=== PATIENT | female | born 1965 ===

== ENCOUNTER → 2018-01-23 | Outpatient (CLI) | payer SELFPAY ==
--- NOTE | 2018-01-23 17:16 | Diagnostic Imaging Report ---
PATIENT HISTORY: Palpable lump in the right neck for five months. TECHNIQUE: High-resolution grayscale and color Doppler ultrasound was performed of the thyroid. COMPARISON: None. FINDINGS: The right thyroid lobe measures 6.2 x 2.9 x 4.0 cm. There is an isoechoic mass at the superior right thyroid measuring 2.3 x 2.0 x 2.6 cm. There is also an isoechoic mass at the inferior right thyroid with central fluid measuring 3.3 x 2.3 x 3.6 cm. This is the dominant and palpable nodule. These masses demonstrate internal vascularity. Vascularity of the thyroid otherwise appears normal. The isthmus measures 5 mm in thickness. The left thyroid measures 4.6 x 1.2 x 1.6 cm, with an isoechoic circumscribed nodule measuring 1.8 x 1.0 x 1.0 cm, with internal vascularity. The thyroid otherwise appears normal. IMPRESSION: Multiple thyroid nodules, with the large dominant right inferior thyroid nodule corresponding with the palpable abnormality. This measures up to 3.6 cm in size. Recommend tissue sampling. Dictated by: Dictated on workstation # [id number]
== END ==
LOC: RAD 14:17
PROVIDERS: ATTEND Nurse Practitioner Family
DX: E04.2 Nontoxic multinodular goiter (principal)
CPT/HCPCS: 76536

== ENCOUNTER → 2018-01-28 | Outpatient (CLI) | payer OTHER ==
--- NOTE | 2018-01-28 08:49 | Diagnostic Imaging Report ---
INDICATION: Routine screening. COMPARISON: 05/22/2015. TECHNIQUE: 2D and 3D bilateral screening mammography was performed with CAD. FINDINGS: Both breasts are heterogeneously dense, limiting the sensitivity of mammography. There has been development of a slightly lobulated 12 mm density in the upper outer right breast approximately 7 cm from the nipple. Additional views and ultrasound of this area are recommended. No other suspicious density is seen. No malignant appearing microcalcifications are identified. The axillae are unremarkable. IMPRESSION: Right breast nodular density. Additional views and ultrasound are recommended for further evaluation. ACR BI-RADS Category 0: Incomplete. (Needs additional imaging evaluation). Result letter will be mailed to the patient. Note: At least 10% of breast cancer is not imaged by mammography. Dictated by: Dictated on workstation # [id number]
== END ==
LOC: RAD 07:11
PROVIDERS: ATTEND Nurse Practitioner Family
DX: Z12.31 Encounter for screening mammogram for malignant neoplasm of breast (principal); R92.8 Other abnormal and inconclusive findings on diagnostic imaging of breast
CPT/HCPCS: 77067

== ENCOUNTER → 2018-02-16 | Outpatient (CLI) | payer SELFPAY ==
[~2018-02-16] VITALS: Ht 154.9 cm; Wt 68.9 kg
[~2018-02-16] MED LIST: LIDOCAINE 1% INJ 20 ML 20 ML VIAL INJ ONE
--- NOTE | 2018-02-16 13:31 | Diagnostic Imaging Report ---
INDICATION: Right thyroid mass. Patient presents for right thyroid biopsy via ultrasound guidance. TECHNIQUE: The patient was brought to the procedure room and placed on the bed in a supine position. Ultrasound imaging over the right neck was performed to evaluate for an appropriate entry site. The right neck was then prepped and draped in the usual sterile fashion. A small amount of 1% lidocaine was utilized for local anesthesia. A total of three passes was made into the large solid mass in the lower pole of the right lobe of the thyroid with 25-gauge needles. Fine-needle aspiration technique was utilized. Next, a total of two passes was made into the solid mass with a 20-gauge Temno needle and core biopsies were obtained. Hemostasis was obtained using manual compression. The patient tolerated the procedure well and left the Department in stable condition. IMPRESSION: Successful ultrasound guided right thyroid mass fine-needle aspiration and core biopsy, as described. Dictated by: Dictated on workstation # [id number]
== END ==
LOC: RAD 10:59
PROVIDERS: ATTEND Nurse Practitioner Family
DX: E07.89 Other specified disorders of thyroid (principal)
CPT/HCPCS: 76942

== ENCOUNTER → 2018-02-25 | Outpatient (CLI) | payer OTHER ==
--- NOTE | 2018-02-25 13:27 | Diagnostic Imaging Report ---
INDICATION: Right breast density. Patient presents for additional views. COMPARISON: Recent screening study of 01/28/2018. TECHNIQUE: 2D and 3D unilateral right diagnostic mammography was performed with CAD. Imaging included rolled CC, spot compression CC, spot compression ML, and conventional 90 degree lateral views. FINDINGS: The additional views confirm the presence of a somewhat lobulated density in the upper outer right breast approximately 6-7 cm from the nipple. This has fairly benign features and may represent a cluster of cysts. Further evaluation with ultrasound is recommended. No other suspicious abnormality is seen. IMPRESSION: Persistent lobulated density in the upper outer right breast at mid depth. Further evaluation with ultrasound is recommended and will be performed today. ACR BI-RADS Category 0: Incomplete. (Needs additional imaging evaluation). Result letter will be mailed to the patient. Note: At least 10% of breast cancer is not imaged by mammography. Dictated by: Dictated on workstation # [id number]
--- NOTE | 2018-02-25 14:22 | Diagnostic Imaging Report ---
Indication: Right breast nodule. Study is performed for further evaluation. Correlation is made with diagnostic mammogram earlier the same day and screening mammogram from 01/28/2018. Sonographic interrogation of the 10 o'clock location of the right breast 6 cm from the nipple demonstrates a cluster of cysts in aggregate measuring 14 mm x 6 mm x 7 mm. No internal vascularity is seen. This does correlate in size and location to the density noted mammographically. No other abnormalities are seen. Impression: BI-RADS category 2 Cluster of cysts at the 10 o'clock location of the right breast, 6 cm from the nipple, correlating with the mammographic abnormality. Patient may return to routine annual screening mammography. ACR BI-RADS Category 2: Benign findings. Result letter will be mailed to the patient. Note: At least 10% of breast cancer is not imaged by mammography. Dictated by: Dictated on workstation # [id number]
== END ==
LOC: RAD 12:56
PROVIDERS: ATTEND Nurse Practitioner Family
DX: N60.01 Solitary cyst of right breast (principal)

== ENCOUNTER → 2019-05-24 | Outpatient (CLI) | payer OTHER ==
--- NOTE | 2019-05-25 12:33 | Diagnostic Imaging Report ---
INDICATION: Routine screening. COMPARISON: Comparison is made with prior mammograms from 01/28/2018 and 05/22/2015. 2-D and 3-D bilateral screening mammography was performed. The current study was also evaluated with a Computer Aided Detection (CAD) system. 3-D tomosynthesis was also performed and reviewed. FINDINGS: Scattered fibroglandular densities are identified bilaterally. A lobulated density in the upper and slightly outer right breast at mid depth is again noted. This was shown by ultrasound to represent a cluster of cysts. This is slightly larger when compared with prior exam. No new mass is identified. There are benign calcifications bilaterally. No malignant-appearing microcalcifications are seen. Axillae are unremarkable. IMPRESSION: Increase in size of a lobulated density in the upper and slightly outer right breast when compared with one year earlier. Ultrasound of this area is recommended to further evaluate previously noted cluster of cysts at this location. ACR BI-RADS Category 0: Incomplete. (Needs additional imaging evaluation). Result letter will be mailed to the patient. Note: At least 10% of breast cancer is not imaged by mammography. Dictated by: Dictated on workstation # [id number]
== END ==
LOC: RAD 15:18
PROVIDERS: ATTEND Nurse Practitioner Family
DX: Z12.31 Encounter for screening mammogram for malignant neoplasm of breast (principal); R92.1 Mammographic calcification found on diagnostic imaging of breast
CPT/HCPCS: 77067

== ENCOUNTER → 2019-06-08 | Outpatient (CLI) | payer OTHER ==
--- NOTE | 2019-06-08 14:31 | Diagnostic Imaging Report ---
INDICATION: Follow-up breast cyst. Comparison made with prior examination from 02/25/2018. Targeted ultrasound of the right breast was performed. FINDINGS: In the 10 o'clock position at the right breast 6 cm from the nipple, there is a cluster of cysts measuring 1.5 x 0.6 x 4.6 cm. There compares to the previous measurement of 1.4 x 0.6 x 0.7 cm. No other discrete solid or cystic masses are appreciated. IMPRESSION: Category 2 benign. Stable benign-appearing cluster cyst in the right breast otherwise unremarkable right breast ultrasound. ACR BI-RADS Category 2: Benign findings. Dictated by: Dictated on workstation # [id number]
== END ==
LOC: RAD 12:36
PROVIDERS: ATTEND Nurse Practitioner Family
DX: N60.01 Solitary cyst of right breast (principal)

== ENCOUNTER → 2021-04-27 | Outpatient (CLI) | payer SELFPAY ==
[~2021-04-27] MED LIST changes: +HOLD METFORMIN - RECEIVED CONTRAST 20 ML VIAL IV SCH; +IOHEXOL 350 MG/ML 100 ML (OMNIPAQUE 350) VIAL IV ONE; -LIDOCAINE 1% INJ 20 ML 20 ML VIAL INJ ONE; +NS 100 ML (IVPB) BAG IV ONE
[2021-04-27 09:16] LABS: ALBUMIN 4.4 GM/DL (3.2-4.5); POTASSIUM 4.4 MMOL/L (3.6-5.0)
[2021-04-27 09:17] LABS: CALCIUM 9.6 MG/DL (8.5-10.1)
[2021-04-27 09:19] LABS: TOTAL PROTEIN 7.9 GM/DL (6.4-8.2)
[2021-04-27 09:20] LABS: BILIRUBIN,TOTAL 1.3 MG/DL (0.1-1.0)
[2021-04-27 09:22] LABS: CREATININE SERUM 0.73 MG/DL (0.60-1.30)
--- NOTE | 2021-04-27 10:33 | Diagnostic Imaging Report ---
EXAMINATION: CT abdomen and pelvis with intravenous contrast. TECHNIQUE: Multiple contiguous axial images were obtained through the abdomen and pelvis after the uneventful administration of intravenous contrast. All CT scans use one or more of the following dose optimizing techniques: automated exposure control, MA and/or KvP adjustment based on patient size and exam type or iterative reconstruction. HISTORY: Pelvic mass. COMPARISON: None available. FINDINGS: Limited views of the lower thorax are unremarkable. Liver is steatotic. No focal liver lesions are seen. There is no biliary ductal dilation. Gallbladder is normal. Pancreas is normal. Spleen is normal. Adrenal glands are normal. The kidneys are normal. There is no hydronephrosis. Urinary bladder is normal. There is mild endometrial thickening. Bowel is normal in caliber without obstruction or inflammation. No free fluid or air. No abdominal or pelvic lymphadenopathy. Aorta is normal caliber without aneurysm. There are no suspicious osseous lesions. IMPRESSION: 1. Mild endometrial thickening. Sonography of the pelvis recommended for further evaluation. 2. Steatotic liver. Dictated by: Dictated on workstation # [id number]
== END ==
LOC: RAD 09:45
PROVIDERS: ATTEND Nurse Practitioner Family
DX: K76.0 Fatty (change of) liver, not elsewhere classified (principal); R93.89 Abnormal findings on diagnostic imaging of other specified body structures
CPT/HCPCS: 36415; 74177; 80053

== ENCOUNTER 2021-07-02 05:34 | Outpatient (CLI) | payer SELFPAY ==
[~2021-07-02] VITALS: Ht 154.9 cm; Wt 79.7 kg
== END 2021-07-02 16:38 | disposition home or self-care (01) ==
LOC: PREOP 05:34
PROVIDERS: ATTEND Surgery
DX: Z01.818 Encounter for other preprocedural examination (principal)

== ENCOUNTER 2021-07-10 10:05 | Day surgery (SDC) | payer OTHER ==
[~2021-07-10] VITALS: Ht 154.9 cm; Wt 79.7 kg
[2021-07-10] MEDS ORDERED: LACTATED RINGERS 1,000 ML IV STA (10:10)
[2021-07-10] MEDS ORDERED: LACTATED RINGERS 1,000 ML IV ONE (10:12)
[2021-07-10 10:25] VITALS: BP 147/89
--- NOTE | 2021-07-10 10:54 | Progress Note-Pre Operative ---
Pre-Operative Progress Note H&P Reviewed The H&P was reviewed, patient examined and no changes noted. Date Seen by Provider: Jul 10, 2021 Time Seen by Provider: 10:54 Date H&P Reviewed: Jul 10, 2021 Time H&P Reviewed: 10:54 Pre-Operative Diagnosis: screening colonoscopy HENRI GO DO Jul 10, 2021 10:54
[2021-07-10] MEDS ORDERED: PROPOFOL INJECTION 50 ML IV ONE (10:59)
--- NOTE | 2021-07-10 11:18 | Progress Note-Post Operative ---
Post-Operative Progess Note Surgeon (s)/Atomic Fuel Assembler (s) Surgeon HENRI GO DO Atomic Fuel Assembler: na Pre-Operative Diagnosis screening colonoscopy Post-Operative Diagnosis diverticuolosis, int hemorrhoids Procedure & Operative Findings Date of Procedure 07/10/21 Procedure Performed/Findings colonoscopy Anesthesia Type per [facility] Estimated Blood Loss Estimated blood loss (mL): none Specimens/Packing Specimens Removed na HENRI GO DO Jul 10, 2021 11:18
--- NOTE | 2021-07-10 11:19 | Discharge Inst-Simple/Standard ---
Discharge Inst-Standard Patient Instructions/Follow Up Plan of Care/Instructions/FU: 10 years Dustin unless family history of colon cancer which would be 5 years. Any issues before that be seen at that time. Activity as Tolerated: Yes Discharge Diet: Regular Diet (high fiber) HENRI GO DO Jul 10, 2021 11:19
[2021-07-10 11:20] VITALS: BP 109/64
[2021-07-10 11:25] VITALS: BP 120/73
[2021-07-10 11:45] VITALS: BP 113/72
[2021-07-10 11:53] VITALS: BP 113/72
--- NOTE | 2021-07-10 13:42 | OPERATIVE REPORT ---
DATE OF SERVICE: 07/10/2021 PREOPERATIVE DIAGNOSIS: Screening colonoscopy. POSTOPERATIVE DIAGNOSES: Diverticulosis, internal hemorrhoids. PROCEDURE: Colonoscopy. SURGEON: Henri Chan DO ANESTHESIA: Per MDA. ESTIMATED BLOOD LOSS: None. COMPLICATIONS: None. INDICATIONS: The patient is a 56-year-old female needing screening colonoscopy. She understands risks and benefits of procedure and wishes to proceed. Consent was signed in the chart. DESCRIPTION OF PROCEDURE: The patient was taken to the endoscopy suite, placed in left lateral recumbent position. Timeout was performed. Digital rectal exam was performed. No palpable polyps, masses or ulcerations. Some internal hemorrhoids. Scope was inserted in the rectum and advanced all the way to cecum with minimal difficulty. Prep was adequate. Scope was slowly retracted back. No polyps, masses or ulcerations within the cecum, ascending, transverse, descending and sigmoid colon. A minimal amount of diverticulosis through the left colon. Once in the rectum, scope was retroflexed noting internal hemorrhoids. No other pathology. Scope was returned to its normal position, slowly withdrawn until completely removed. The patient tolerated the procedure well without any complications. She was taken to recovery room in stable condition. RECOMMENDATIONS: The patient recommended high fiber diet due to diverticulosis. The patient also recommended repeat colonoscopy in 10 years unless family history of colon cancer, which would then be 5 years. Any issues before that be seen at that time. CC: Mercedes Romero - requested, unable to deliver. Job ID: [id number] DocumentID: [id number] Dictated Date: 07/10/2021 11:22:14 Tile Trimmer Date: 07/10/2021 13:41:21 Dictated By: HENRI CHAN DO
--- NOTE | 2021-07-10 15:04 | Anesthesia-General Post-Op ---
MAC Patient Condition Mental Status/LOC: Same as Preop Cardiovascular: Satisfactory Nausea/Vomiting: Absent Respiratory: Satisfactory Pain: Controlled Complications: Absent Post Op Complications Complications None Follow Up Care/Instructions Patient Instructions None needed. Anesthesiology Discharge Order Discharge Order Patient was doing well after the procedure, no complaints, stable vital signs, no apparent adverse anesthesia problems. KHANH GO DO Jul 10, 2021 15:04
== END 2021-07-10 11:55 | disposition home or self-care (01) ==
LOC: ENDO 10:05
PROVIDERS: ATTEND Surgery
DX: Z12.11 Encounter for screening for malignant neoplasm of colon (principal); K57.30 Diverticulosis of large intestine without perforation or abscess without bleeding; K64.8 Other hemorrhoids

== ENCOUNTER → 2021-07-30 | Outpatient (CLI) | payer SELFPAY ==
[~2021-07-30] VITALS: Ht 154.9 cm; Wt 77.3 kg
== END ==
LOC: PREOP 05:35
PROVIDERS: ATTEND Obstetrics & Gynecology
DX: Z01.818 Encounter for other preprocedural examination (principal)

== ENCOUNTER 2021-08-06 07:24 | Day surgery (SDC) | payer OTHER ==
[~2021-08-06] VITALS: Ht 154.9 cm; Wt 77.3 kg
[2021-08-06] VITALS (10 sets, daily range): BP systolic 86–146; BP diastolic 51–95
[2021-08-06] MEDS ORDERED: LACTATED RINGERS 1,000 ML IV PRN (07:45)
[2021-08-06 08:29] LABS: BASOPHILS # (AUTO) 0.1 10^3/uL (0.0-0.1); BASOPHILS % (AUTO) 1 % (0-10); EOSINOPHILS # (AUTO) 0.1 10^3/uL (0.0-0.3); EOSINOPHILS % (AUTO) 1 % (0-10); HEMATOCRIT 43 % (35-52); HEMOGLOBIN 14.7 g/dL (11.5-16.0); LYMPHOCYTES # (AUTO) 1.7 10^3/uL (1.0-4.0); LYMPHOCYTES % (AUTO) 22 % (12-44); MEAN CORPUSCULAR HEMOGLOBIN 29 pg (25-34); MEAN CORPUSCULAR HGB CONC 35 g/dL (32-36); MEAN CORPUSCULAR VOLUME 83 fL (80-99); MEAN PLATELET VOLUME 10.1 fL (9.0-12.2); MONOCYTES # (AUTO) 0.4 10^3/uL (0.0-1.0); MONOCYTES % (AUTO) 6 % (0-12); NEUTROPHILS # (AUTO) 5.4 10^3/uL (1.8-7.8); NEUTROPHILS % (AUTO) 70 % (42-75); PLATELET COUNT 334 10^3/uL (130-400); WHITE BLOOD COUNT 7.7 10^3/uL (4.3-11.0)
[2021-08-06] MEDS ORDERED: KETOROLAC 30 MG/ML VIAL IVP ONE (08:45)
[2021-08-06] MEDS ORDERED: ONDANSETRON 4 MG/2 ML (SDV) Z0FRAN IVP PRN ×2 (08:45→11:00)
[2021-08-06] MEDS ORDERED: HYDROcodone/APAP 5 MG/325 MG (LORTAB) TAB PO PRN (08:45)
[2021-08-06] MEDS ORDERED: D5 LR IV SOLUTION 1,000 ML IV SCH (08:45)
--- NOTE | 2021-08-06 08:45 | Progress Note-Pre Operative ---
Pre-Operative Progress Note H&P Reviewed The H&P was reviewed, patient examined and no changes noted. Date Seen by Provider: Aug 06, 2021 Time Seen by Provider: 08: Date H&P Reviewed: Aug 06, 2021 Time H&P Reviewed: :30 Pre-Operative Diagnosis: AUB, Thickened endometrium, PMB DAREN ALVARENGA DO Aug 06, 2021 08:45
[2021-08-06] MEDS ORDERED: IBUP-1773 PO (08:46)
--- NOTE | 2021-08-06 08:46 | Discharge Inst-Women's Service ---
Discharge Inst-Women's Serv Depart Medication/Instructions New, Converted or Re-Newed RX: Transmitted to Pharmacy Problems Reviewed?: Yes Consults/Follow Up Additional Follow Up: Yes Activity Activity: Activity as Tolerated Driving Instructions: You May Drive NO SMOKING: NO SMOKING Nothing Inside Vagina: No Douching, No [place], No Tampons Diet Discharge Diet: No Restrictions Symptoms to Report to : Bleeding Excessive, Pain Increased, Fever Over 101 Degrees F, Vaginal Bleeding Increase, Questions/Concerns For Any Problems or Questions: Contact Your Physician DAREN ALVARENGA DO Aug 06, 2021 08:46
[2021-08-06] MEDS ORDERED: BUPIVACAINE 0.25% 10 ML (SENSORCAINE) VIAL ONE (09:19)
[2021-08-06] MEDS ORDERED: MIDAZOLAM 2 MG/2 ML (VERSED) VIAL ONE (09:54)
[2021-08-06] MEDS ORDERED: ONDANSETRON 4 MG/2 ML (SDV) Z0FRAN ONE (09:54)
[2021-08-06] MEDS ORDERED: proPOfol 200 MG/20 ML (DIPRIVAN) VIAL IV ONE (09:54)
[2021-08-06] MEDS ORDERED: LIDOCAINE PF 2% 5 ML (XYLOCAINE) VIAL ONE (09:54)
[2021-08-06] MEDS ORDERED: KETOROLAC 30 MG/ML VIAL ONE (09:54)
[2021-08-06] MEDS ORDERED: fentaNYL INJ 100 MCG/2 ML AMP ONE (09:54)
[2021-08-06] MEDS ORDERED: SEVOFLURANE (ULTANE) 15 ML INHAL SOLN ONE (10:48)
[2021-08-06] MEDS ORDERED: morphine INJ 10 MG/ML 1ML (SYR OR VIAL) IVP ONE (11:00)
[2021-08-06] MEDS ORDERED: PROMETHAZINE INJ 25 MG/ML (PHENERGAN) AMP IVP ONE (11:00)
--- NOTE | 2021-08-06 16:02 | OPERATIVE REPORT ---
DATE OF SERVICE: PREOPERATIVE DIAGNOSES: 1. A 56-year-old female with postmenopausal bleeding. 2. Thickened endometrium on ultrasound. POSTOPERATIVE DIAGNOSES: 1. A 56-year-old female with postmenopausal bleeding. 2. Thickened endometrium on ultrasound. PROCEDURE: D and C. SURGEON: Victor Hugo Guadarrama DO ANESTHESIA: LMA general. ESTIMATED BLOOD LOSS: Minimal. URINE OUTPUT: 200 mL drained at the end of the procedure. FLUIDS: 800 mL lactated Ringer's solution. FINDINGS: Grossly normal-appearing external female genitalia with a grade II to III rectocele noted and some mild uterine prolapse. SPECIMEN SENT: Endometrial curettings. INDICATIONS FOR PROCEDURE: This 56-year-old female is a patient who was a consultation from the [facility] for postmenopausal bleeding. Ultrasound revealed thickened endometrium. I discussed with the patient performing a D and C versus endometrial biopsy in the office. We both agreed that D and C under anesthesia would probably be the best option for the patient. Risks of procedure were discussed with the patient and her daughter in person and all of her questions were answered. Once this was done, it was scheduled in the preoperative area, consent was obtained. All questions again were answered and the patient was taken to the operating room. OPERATIVE REPORT IN DETAIL: Once in the operating room, Anesthesia was found to be adequate, placed in dorsal lithotomy position, prepped and draped in normal sterile fashion. Timeout was performed. A weighted speculum inserted to the patient's vagina. Right angle retractor was used to visualize the cervix. It was grasped at 12 o'clock position using a long Allis clamp. The paracervical block was then performed at 3 and 9 o'clock position using 0.25% Marcaine with 5 mL were injected into each site. Care was taken to aspirate for injecting. I then gently sounded the uterine cavity, depth was found to be 8 cm. I then gently dilated the cervix using Hanks dilators to maximum dilatation approximately 1 cm, at which point I performed a gentle curettage of all endometrial surfaces. A small to moderate amount of endometrial tissue was collected at that point and sent as endometrial curettings, after which no active bleeding noted from the cervix. All instruments were removed from the patient's vagina. The patient tolerated the procedure well and sent to recovery area in stable condition. Lap and sponge counts were correct at the end of the procedure. Instrument counts correct as well. Job ID: [id number] DocumentID: [id number] Dictated Date: 08/06/2021 10:58:23 Clay Plant Treater Date: 08/06/2021 16:01:05 Dictated By: DO MOUNIKA WALLIS
== END 2021-08-06 12:40 | disposition home or self-care (01) ==
LOC: SDC 07:24
PROVIDERS: ATTEND Obstetrics & Gynecology
DX: N95.0 Postmenopausal bleeding (principal); N81.6 Rectocele; N81.4 Uterovaginal prolapse, unspecified; R10.2 Pelvic and perineal pain; R93.89 Abnormal findings on diagnostic imaging of other specified body structures
CPT/HCPCS: 36415; 85025; 86850; 86900; 86901; 87081; 88305